=== PATIENT | male | born 1985 | race Caucasian/White ===

== ENCOUNTER 2020-07-31 03:55 | Emergency (ER) | payer OTHER ==
[~2020-07-31] VITALS: Ht 180.3 cm; Wt 90.7 kg
[~2020-07-31 03:55] MED LIST: ACYCLOVIR 400400 MG PO; ALL DAY PAIN R220 MG PO; AMOXICILLIN 50500 MG PO; AMOXICILLIN500 M1 PO; AMOXIL 875 MG875 M1 PO; ASPIRIN325; ATROVENT HFA14 GM INH; AZITHROMYCIN 2250 MG PO; BACTRIM DS TAB1 EACH PO; CEPHALEXIN 500500 M3 PO; CIPROFLOXACIN500 M1 PO; CIPROFLOXIN HC2.5 M1 OPHTHALMIC; COLACE100 MG PO; COMBIVENT INH; DELTASONE20 MG PO; DUONEB 2.5-0.5 M3 ML INH; FLAGYL500 MG PO; HYDROCODONE-AP1 EAC6 PO; IBUPROFEN 200200 M1; IBUPROFEN 800800 M1 PO; IBUPROFEN 800800 MG PO; KEFLEX500 MG PO; MOBIC7.5 MG PO; NAPROSYN500 MG; NICOTINE TRANSD21 M1 TD; NORCO 5-325 TA1 EACH PO; PHENERGAN 25 MG25 M1 PO; PREDNISONE 10 M10 M1 PO; PREDNISONE 10 M10 MG PO; PREDNISONE 20 M20 M1 PO; PROMETHAZINE-C120 ML PO; PROZAC 20 MG20 M1; ROBAXIN500 MG PO; SINGULAIR 10 MG10 M1 PO; SYMBICORT160 MCG/4. INH; TESSALON PERLE100 M1 PO; TESSALON PERLE100 MG PO; VENTOLIN HFA 1818 GM INH; ZANTAC 150MG T150 MG PO; ZOFRAN ODT4 MG PO; ZOFRAN ODT4 MG SUBLING; ZPAK PO
[2020-07-31] MEDS ORDERED: PROAIR HFA8.5 GM INH ×2 (04:31→05:27)
[2020-07-31] MEDS ORDERED: PREDNISONE50 MG PO (05:27)
[2020-07-31 05:37] VITALS: BP 135/82
== END 2020-07-31 05:38 | disposition home or self-care (01) ==
LOC: M.ERS 03:55
DX: J44.1 Chronic obstructive pulmonary disease with (acute) exacerbation (principal); K58.9 Irritable bowel syndrome, unspecified; F17.210 Nicotine dependence, cigarettes, uncomplicated; Z91.018 Allergy to other foods

== ENCOUNTER 2020-10-19 00:14 | Emergency (ER) | payer BC ==
[~2020-10-19] VITALS: Ht 180.3 cm; Wt 90.7 kg
[~2020-10-19 00:14] MED LIST changes: +PREDNISONE50 MG PO; +PROAIR HFA8.5 GM INH
[2020-10-19] MEDS ORDERED: ZEGERID 20 MG1 EACH PO (00:32)
[2020-10-19] MEDS ORDERED: HYDROCODON-ACE1 EAC8 PO (00:51)
[2020-10-19] MEDS ORDERED: CLEOCIN HCL300 MG PO (00:51)
[2020-10-19 01:08] VITALS: BP 141/91
== END 2020-10-19 01:09 | disposition home or self-care (01) ==
LOC: M.ERS 00:14
DX: K04.7 Periapical abscess without sinus (principal); F17.210 Nicotine dependence, cigarettes, uncomplicated; J45.909 Unspecified asthma, uncomplicated; Z79.899 Other long term (current) drug therapy; Z91.018 Allergy to other foods